=== PATIENT | male | born 1975 | race Caucasian/White ===

== ENCOUNTER → 2020-10-14 | Day surgery (SDC) | payer OTHER ==
[~2020-10-14] MED LIST: ACETAMINOPHEN500 M1 PO; ALLOPURINOL100 MG PO; MOTRIN600 MG PO; NEXIUM40 MG PO
== END | disposition home or self-care (01) ==
LOC: FAS 06:10
DX: D17.9 Benign lipomatous neoplasm, unspecified (principal); K21.9 Gastro-esophageal reflux disease without esophagitis; G47.30 Sleep apnea, unspecified; E66.9 Obesity, unspecified; M10.9 Gout, unspecified; Z72.89 Other problems related to lifestyle; Z20.822 Contact with and (suspected) exposure to COVID-19; Z88.0 Allergy status to penicillin; Z99.81 Dependence on supplemental oxygen; Z98.890 Other specified postprocedural states
CPT/HCPCS: J2001; J2250; J2405; J2704; J3010; J7120